=== PATIENT | male | born 1935 ===

== ENCOUNTER 2018-01-19 16:41 | Emergency (ER) | payer MEDICARE, OTHER ==
[2018-01-19 17:13] VITALS: BP 130/66
--- NOTE | 2018-01-19 17:33 | UC ---
Complaint Male HPI - HPI Summary HPI Summary: patient self caths--he forgot his catheters at home-he is her at [place] with family - History of Current Complaint Chief Complaint: UCGU Stated Complaint: URINARY COMPLAINT Time Seen by Provider: 01/19/18 17:30 Hx Obtained From: Patient Severity Currently: None Pain Intensity: 0 Pain Scale Used: 0-10 Numeric - Allergies/Home Medications Allergies/Adverse Reactions: Allergies Allergy/AdvReac Type Severity Reaction Status Date / Time No Known Allergies Allergy Verified 01/19/18 17:13 Home Medications: Home Medications Allopurinol TAB* [Zyloprim 100 MG TAB*] 100 mg PO DAILY 01/19/18 [History Confirmed 01/19/18] Finasteride [Proscar] 5 mg PO 01/19/18 [History] Hydrochlorothiazide TAB* [Hydrodiuril TAB*] 25 mg PO DAILY 01/19/18 [History Confirmed 01/19/18] Losartan TAB* [Cozaar TAB*] 25 mg PO DAILY 01/19/18 [History Confirmed 01/19/18] Metformin HCl [Metformin HCl ER] 1,000 mg PO BID 01/19/18 [History Confirmed 12/29] Montelukast Sodium TAB* [Singulair TAB*] 10 mg PO DAILY 01/19/18 [History Confirmed 01/19/18] Nebivolol HCl [Bystolic] 5 mg PO 01/19/18 [History] Pravastatin (NF) [Pravachol (NF)] 10 mg PO 1700 01/19/18 [History Confirmed 12/29] Tamsulosin CAP* [Flomax CAP*] 0.4 mg PO DAILY 01/19/18 [History Confirmed ] PMH/Surg Hx/FS Hx/Imm Hx Previously Healthy: No - urinary retention Endocrine History: Diabetes, Dyslipidemia Cardiovascular History: Cardiac Disease, Hypertension - Surgical History Surgical History: Yes Surgery Procedure, Year, and Place: stents x6 - Family History Known Family History: Positive: None - Social History Occupation: Retired Lives: With Family Alcohol Use: None Substance Use Type: None Smoking Status (MU): Never Smoked Tobacco Review of Systems Constitutional: Negative Skin: Negative Eyes: Negative ENT: Negative Respiratory: Negative Cardiovascular: Negative Gastrointestinal: Negative Genitourinary: Negative Motor: Negative Neurovascular: Negative Musculoskeletal: Negative Neurological: Negative Psychological: Negative Is Patient Immunocompromised?: No All Other Systems Reviewed And Are Negative: Yes Physical Exam Triage Information Reviewed: Yes Appearance: Well-Appearing, No Pain Distress, Well-Nourished Vital Signs: Initial Vital Signs Temp 98.4 F 01/19/18 17:08 Pulse 66 01/19/18 17:08 Resp 18 01/19/18 17:08 BP 130/66 01/19/18 17:08 Pulse Ox 97 01/19/18 17:08 Vital Signs Reviewed: Yes Eye Exam: Normal Eyes: Positive: Conjunctiva Clear ENT Exam: Normal ENT: Positive: Normal ENT inspection, Hearing grossly normal. Negative: Trismus , Muffled voice, Hoarse voice Dental Exam: Normal Neck exam: Normal Neck: Positive: Supple, Nontender Respiratory Exam: Normal Respiratory: Positive: Chest non-tender, No respiratory distress, No accessory muscle use Cardiovascular Exam: Normal Cardiovascular: Positive: RRR, Pulses Normal, Brisk Capillary Refill Musculoskeletal Exam: Normal Musculoskeletal: Positive: Strength Intact, ROM Intact, No Edema Neurological Exam: Normal Neurological: Positive: Alert, Muscle Tone Normal Psychological Exam: Normal Skin Exam: Normal Complaint Male Course/Dx - Course Course Of Treatment: 2 catheters dispensed to patient - Differential Dx/Diagnosis Provider Diagnoses: chronic urinary retention Discharge - Sign-Out/Discharge Documenting (check all that apply): Patient Departure All imaging exams completed and their final reports reviewed: No Studies - Discharge Plan Condition: Stable Disposition: HOME Referrals: No Primary Care Phys,NOPCP [Primary Care Provider] - Additional Instructions: Follow with senior mechanical estimator as needed---return for any concerns - Billing Disposition and Condition Condition: STABLE Disposition: Home
== END 2018-01-19 17:36 | disposition home or self-care (01) ==
LOC: UCEAST 16:41
DX: R33.9 Retention of urine, unspecified (principal); E11.9 Type 2 diabetes mellitus without complications; Z79.84 Long term (current) use of oral hypoglycemic drugs; E78.5 Hyperlipidemia, unspecified; I10 Essential (primary) hypertension
CPT/HCPCS: 99201; G0463